=== PATIENT | male | born 1990 | race Two or more races ===

== ENCOUNTER 2020-09-16 21:21 | Inpatient (IN) | payer MEDICAID, OTHER ==
[~2020-09-16] VITALS: Ht 162.6 cm; Wt 125.1 kg
[2020-09-16] MEDS ORDERED: LABETALOL HCL 5 MG/ML 4ML SYRINGE IV ONE ×2 (21:30→23:00)
[2020-09-16 23:04] LABS: Basophils # (auto) 0.2 10 ^3/uL (0-0.2); Basophils % (auto) 1.8 % (0.0-2.0); Eosinophils # (auto) 0.1 10 ^3/uL (0-0.8); Hematocrit 49.7 % (41.0-53.0); Hemoglobin 16.9 g/dL (13.5-17.5); Lymphocytes # (auto) 1.8 10 ^3/uL (0.4-5.4); Lymphocytes % (auto) 18.7 % (10.0-50.0); Mean Corpuscular Hemoglobin 30.1 pg (28.0-32.0); Mean Corpuscular Volume 88.5 fL (80.0-100.0); Monocytes # (auto) 0.6 10 ^3/uL (0-1.3); Monocytes % (auto) 5.8 % (0.0-12.0); Neutrophils # (auto) 7.1 10 ^3/uL (1.6-8.6); Neutrophils % (auto) 72.7 % (37.0-80.0); Platelet Count (auto) 252 10^3/uL (140-450); Red Blood Cells 5.62 10^6/uL (4.5-5.90); Red Cell Distribution Width 13.1 % (11.8-14.3); White Blood Cell 9.8 10^3/uL (4.4-10.8)
[2020-09-16 23:26] LABS: Alanine Aminotransferase 93 U/L (16-61); Albumin 3.8 g/dL (3.4-5.0); Anion Gap 12 (5-15); Aspartate Aminotransferase 37 U/L (15-37); BUN/Creatinine Ratio 14.5; Blood Urea Nitrogen 11 mg/dL (7-18); Carbon Dioxide 25 mmol/L (21-32); Chloride 98 mmol/L (98-107); GFR African American 153 mL/min; GFR Non-African American 126 mL/min; Glucose 329 mg/dL (74-106); Potassium 3.5 mmol/L (3.5-5.1); Sodium 135 mmol/L (136-145)
[2020-09-16 23:32] LABS: INR 0.96 (0.9-1.15); Partial Thromboplastin Time 26.2 sec (23.0-31.2)
[2020-09-16 23:35] LABS: Alkaline Phosphatase 130 U/L (45-117); Bilirubin, Total 0.4 mg/dL (0.2-1.0)
[2020-09-17] VITALS (8 sets, daily range): BP systolic 154–161; BP diastolic 85–111
[2020-09-17] MEDS ORDERED: DEXTROSE (50%) 50ML SYRG IV PRN (01:30)
[2020-09-17] MEDS ORDERED: MORPHINE SULF INJ 2 MG/ML SYRINGE 1ML IV PRN (01:45)
[2020-09-17] MEDS ORDERED: ONDANSETRON HCL 4 MG/2 ML VIAL IV PRN (01:45)
[2020-09-17] MEDS ORDERED: HYDROcodone-ACET 5/325MG TAB PO PRN (01:45)
[2020-09-17] MEDS ORDERED: DOCUSATE SOD 100 MG CAP PO PRN (01:45)
[2020-09-17] MEDS ORDERED: NITROGLYCERIN 0.4 MG SL TAB SL PRN (01:45)
[2020-09-17] MEDS: ACETAMINOPHEN 325 MG TAB PO PRN (03:47)
[2020-09-17] MEDS: hydrALAZINE HCL 20 MG/ML VL IV PRN ×2 (04:05→22:16)
[2020-09-17] MEDS: InsuLIN REG 1unit/0.01ml Soln (100units/ml) SC SCH ×3 (06:31→16:30)
[2020-09-17] MEDS: ACCU-CHEK COMFORT CURVE STRIP VI SCH ×4 (06:33→21:43)
[2020-09-17] MEDS: INSULIN LANTUS (GLARGINE) 1 /0.01ml (100units/ml) SC SCH ×2 (06:33→22:14)
[2020-09-17] MEDS: ZINC SULFATE 220mg CAP or TAB PO SCH (09:29)
[2020-09-17] MEDS: MULTIPLE VITAMIN TAB PO SCH (09:29)
[2020-09-17] MEDS: ENOXAPARIN SOD 120 MG/0.8 ML SYRINGE SC SCH (09:30)
[2020-09-17] MEDS: ASCORBIC ACID 500 MG TAB PO SCH ×2 (09:30→21:42)
[2020-09-17] MEDS: amLODIPine BESYLATE 5 MG TAB PO SCH (09:30)
[2020-09-17] MEDS: FAMOTIDINE 20 MG TAB PO SCH ×2 (09:30→21:42)
[2020-09-17 09:33] LABS: Basophils # (auto) 0.1 10 ^3/uL (0-0.2); Basophils % (auto) 1.1 % (0.0-2.0); Eosinophils # (auto) 0.2 10 ^3/uL (0-0.8); Eosinophils % (auto) 3.1 % (0.0-7.0); Hematocrit 46.2 % (41.0-53.0); Hemoglobin 15.8 g/dL (13.5-17.5); Lymphocytes # (auto) 2.2 10 ^3/uL (0.4-5.4); Lymphocytes % (auto) 28.7 % (10.0-50.0); Mean Corpuscular Hemoglobin 30.4 pg (28.0-32.0); Mean Corpuscular Hgb Conc. 34.1 g/dL (32.0-36.0); Monocytes # (auto) 0.5 10 ^3/uL (0-1.3); Monocytes % (auto) 6.2 % (0.0-12.0); Neutrophils # (auto) 4.8 10 ^3/uL (1.6-8.6); Neutrophils % (auto) 60.9 % (37.0-80.0); Platelet Count (auto) 238 10^3/uL (140-450); White Blood Cell 7.8 10^3/uL (4.4-10.8)
[2020-09-17 09:55] LABS: Albumin 3.2 g/dL (3.4-5.0); Calcium 8.7 mg/dL (8.5-10.1); Potassium 3.9 mmol/L (3.5-5.1)
[2020-09-17 10:00] LABS: BUN/Creatinine Ratio 15.1; Bilirubin, Total 0.5 mg/dL (0.2-1.0)
[2020-09-17] MEDS: Glucerna Carbsteady SHAKE Vanilla 8oz PO SCH (17:43)
[2020-09-17] MEDS ORDERED: InsuLIN REG 1unit/0.01ml Soln (100units/ml) SC SCH (22:00)
[2020-09-18 05:00] VITALS: BP 164/104
[2020-09-18] MEDS: InsuLIN REG 1unit/0.01ml Soln (100units/ml) SC SCH ×2 (06:33→13:40)
[2020-09-18] MEDS: INSULIN LANTUS (GLARGINE) 1 /0.01ml (100units/ml) SC SCH (06:34)
[2020-09-18] MEDS: ACCU-CHEK COMFORT CURVE STRIP VI SCH ×2 (06:34→13:37)
[2020-09-18] MEDS: hydrALAZINE HCL 20 MG/ML VL IV PRN (06:35)
[2020-09-18 07:35] LABS: Basophils # (auto) 0.1 10 ^3/uL (0-0.2); Basophils % (auto) 1.2 % (0.0-2.0); Eosinophils # (auto) 0.4 10 ^3/uL (0-0.8); Eosinophils % (auto) 4.6 % (0.0-7.0); Hemoglobin 17.1 g/dL (13.5-17.5); Lymphocytes # (auto) 2.4 10 ^3/uL (0.4-5.4); Lymphocytes % (auto) 31.6 % (10.0-50.0); Mean Corpuscular Hemoglobin 31.2 pg (28.0-32.0); Mean Corpuscular Hgb Conc. 34.9 g/dL (32.0-36.0); Mean Corpuscular Volume 89.4 fL (80.0-100.0); Monocytes # (auto) 0.4 10 ^3/uL (0-1.3); Monocytes % (auto) 5.8 % (0.0-12.0); Neutrophils # (auto) 4.3 10 ^3/uL (1.6-8.6); Neutrophils % (auto) 56.8 % (37.0-80.0); Nucleated Red Blood Cells % 0.1 %; Platelet Count (auto) 237 10^3/uL (140-450); Red Blood Cells 5.48 10^6/uL (4.5-5.90); Red Cell Distribution Width 13.2 % (11.8-14.3); White Blood Cell 7.6 10^3/uL (4.4-10.8)
[2020-09-18 07:46] LABS: Albumin 3.4 g/dL (3.4-5.0); Calcium 8.8 mg/dL (8.5-10.1); Potassium 3.9 mmol/L (3.5-5.1)
[2020-09-18 07:50] LABS: BUN/Creatinine Ratio 20.8; Bilirubin, Total 0.5 mg/dL (0.2-1.0); Total Protein 7.6 g/dL (6.4-8.2)
[2020-09-18 08:39] VITALS: BP 142/88
[2020-09-18] MEDS: ZINC SULFATE 220mg CAP or TAB PO SCH (09:08)
[2020-09-18] MEDS: Glucerna Carbsteady SHAKE Vanilla 8oz PO SCH ×2 (09:08→13:37)
[2020-09-18] MEDS: MULTIPLE VITAMIN TAB PO SCH (09:08)
[2020-09-18] MEDS: FAMOTIDINE 20 MG TAB PO SCH (09:09)
[2020-09-18] MEDS: amLODIPine BESYLATE 5 MG TAB PO SCH (09:09)
[2020-09-18] MEDS: ASCORBIC ACID 500 MG TAB PO SCH (09:09)
[2020-09-18] MEDS: ENOXAPARIN SOD 120 MG/0.8 ML SYRINGE SC SCH (09:10)
[2020-09-18] MEDS: ACETAMINOPHEN 325 MG TAB PO PRN (09:11)
[2020-09-18] MEDS ORDERED: GLIP5TAB12 PO (09:31)
[2020-09-18] MEDS ORDERED: METF-370 PO (09:31)
[2020-09-18] MEDS ORDERED: ATOR20TA50 PO (09:31)
[2020-09-18] MEDS ORDERED: LOSA-39 PO (09:31)
[2020-09-18] MEDS ORDERED: AMLO-489 PO (09:31)
[2020-09-18] MEDS ORDERED: LISI-646 PO (09:31)
[2020-09-18 12:14] VITALS: BP 139/101
[2020-09-18] MEDS: CLOTRIMAZOLE 1 % CREAM 15GM TOP SCH ×2 (13:41→13:50)
== END 2020-09-18 14:30 | disposition left against medical advice (07) | DRG 199 ==
LOC: ER 21:21 → TELE 09-17 01:49 → TELE-CENTR 09-17 03:30
PROVIDERS: ADMIT Nurse Practitioner Family; ATTEND Internal Medicine
DX: I16.0 Hypertensive urgency (principal); E44.0 Moderate protein-calorie malnutrition; I50.9 Heart failure, unspecified; E11.65 Type 2 diabetes mellitus with hyperglycemia; E66.01 Morbid (severe) obesity due to excess calories; Z68.42 Body mass index [BMI] 45.0-49.9, adult; R65.10 Systemic inflammatory response syndrome (SIRS) of non-infectious origin without acute organ dysfunction; E87.1 Hypo-osmolality and hyponatremia; Z20.822 Contact with and (suspected) exposure to COVID-19; Z91.19 Patient's noncompliance with other medical treatment and regimen; F14.10 Cocaine abuse, uncomplicated; Z91.14 Patient's other noncompliance with medication regimen; I11.0 Hypertensive heart disease with heart failure; Z53.29 Procedure and treatment not carried out because of patient's decision for other reasons; F15.10 Other stimulant abuse, uncomplicated; F17.210 Nicotine dependence, cigarettes, uncomplicated; N47.6 Balanoposthitis
CPT/HCPCS: 36415; 70450; 71045; 80053; 80320; 82962; 83036; 83880; 84443; 84484; 85025; 85379; 85610; 85730; 87077; 87081; 87205; 87426; 93005; 96374; 96375; G0378; J1815; J3490

== ENCOUNTER 2020-11-28 15:43 | Emergency (ER) | payer SELFPAY ==
[~2020-11-28] VITALS: Ht 162.6 cm; Wt 127.0 kg
[~2020-11-28 15:43] MED LIST: AMLO-489 PO; ATOR20TA50 PO; GLIP5TAB12 PO; LISI20TA28 PO; LOSA-39 PO; METF-370 PO
[2020-11-28 16:17] VITALS: BP 157/109
== END 2020-11-28 16:45 | disposition home or self-care (01) ==
LOC: ER 15:43
DX: B37.42 Candidal balanitis (principal); N39.0 Urinary tract infection, site not specified; I10 Essential (primary) hypertension; E11.9 Type 2 diabetes mellitus without complications

== ENCOUNTER → 2021-01-16 | Emergency (ER) | payer MEDICAID, OTHER ==
[~2021-01-16] VITALS: Ht 165.1 cm; Wt 117.9 kg
[~2021-01-16] MED LIST changes: +LIDOCAINE VISCOUS 2% 15ML UD ONE; +MIDAZOLAM HCL 5 MG/ML-1ML VIAL ONE; +SODIUM CHLORIDE LOCK 10 ML ONE; +diphenhdrAMINE HCL 50 MG/1 ML VL ONE; +fentaNYL CITRATE 100 MCG/2 ML VL ONE
[2021-01-16 12:21] VITALS: BP 137/100
== END | disposition left against medical advice (07) ==
LOC: ER 12:19
DX: R06.02 Shortness of breath (principal); R07.89 Other chest pain; Z53.21 Procedure and treatment not carried out due to patient leaving prior to being seen by health care provider; Z20.822 Contact with and (suspected) exposure to COVID-19
CPT/HCPCS: 36415; 71046; 87426; 93005; J2250

== ENCOUNTER 2021-01-29 00:40 | Emergency (ER) | payer MEDICAID ==
[~2021-01-29] VITALS: Ht 165.1 cm; Wt 113.4 kg
[~2021-01-29 00:40] MED LIST changes: -LIDOCAINE VISCOUS 2% 15ML UD ONE; -MIDAZOLAM HCL 5 MG/ML-1ML VIAL ONE; -SODIUM CHLORIDE LOCK 10 ML ONE; -diphenhdrAMINE HCL 50 MG/1 ML VL ONE; -fentaNYL CITRATE 100 MCG/2 ML VL ONE
[2021-01-29 01:58] LABS: Basophils # (auto) 0.1 10 ^3/uL (0-0.2); Basophils % (auto) 0.9 % (0.0-2.0); Eosinophils # (auto) 0.1 10 ^3/uL (0-0.8); Eosinophils % (auto) 1.6 % (0.0-7.0); Hematocrit 46.8 % (41.0-53.0); Hemoglobin 16.1 g/dL (13.5-17.5); Lymphocytes % (auto) 28.7 % (10.0-50.0); Mean Corpuscular Hemoglobin 31.3 pg (28.0-32.0); Mean Corpuscular Hgb Conc. 34.4 g/dL (32.0-36.0); Mean Corpuscular Volume 91.1 fL (80.0-100.0); Monocytes # (auto) 0.5 10 ^3/uL (0-1.3); Monocytes % (auto) 7.7 % (0.0-12.0); Neutrophils # (auto) 4.3 10 ^3/uL (1.6-8.6); Neutrophils % (auto) 61.1 % (37.0-80.0); Red Blood Cells 5.13 10^6/uL (4.5-5.90); Red Cell Distribution Width 13.3 % (11.8-14.3)
[2021-01-29 02:17] LABS: INR 0.96 (0.9-1.15)
[2021-01-29 02:29] LABS: Alanine Aminotransferase 114 U/L (16-61); Albumin 3.6 g/dL (3.4-5.0); Anion Gap 14 (5-15); Aspartate Aminotransferase 43 U/L (15-37); BUN/Creatinine Ratio 11.8; Blood Urea Nitrogen 13 mg/dL (7-18); Carbon Dioxide 20 mmol/L (21-32); Chloride 104 mmol/L (98-107); GFR African American 100 mL/min; GFR Non-African American 82 mL/min; Lipase 161 U/L (73-393); Potassium 4.2 mmol/L (3.5-5.1); Sodium 138 mmol/L (136-145)
[2021-01-29 02:32] LABS: Glucose 417 mg/dL (74-106)
[2021-01-29 02:34] LABS: Lactic Acid w/Reflex 2.9 mmol/L (0.4-2.0)
[2021-01-29 02:35] LABS: Alkaline Phosphatase 162 U/L (45-117); Bilirubin, Total 0.2 mg/dL (0.2-1.0)
[2021-01-29] MEDS ORDERED: InsuLIN REG 1unit/0.01ml Soln (100units/ml) IV ONE (03:15)
[2021-01-29] MEDS ORDERED: SODIUM CHLORIDE 0.9% 1,000 ML IV ONE (03:45)
[2021-01-29 04:05] LABS: Urine Bacteria FEW /hpf (None Seen); Urine Blood Negative /uL (Negative); Urine Mucus FEW (None Seen); Urine Specific Gravity 1.031 (1.001-1.035); Urine WBC 1 /hpf (0 - 3)
[2021-01-29] MEDS ORDERED: cloNIDine HCL 0.1 MG TAB PO ONE (04:15)
[2021-01-29 07:36] VITALS: BP 159/100
== END 2021-01-29 07:38 | disposition home or self-care (01) ==
LOC: ER 00:40 → EDBD 00:40 → ER 07:38
DX: I10 Essential (primary) hypertension (principal); E11.65 Type 2 diabetes mellitus with hyperglycemia; Z79.899 Other long term (current) drug therapy
CPT/HCPCS: 36415; 71045; 80053; 80320; 81001; 82962; 83605; 83690; 83880; 84484; 85025; 85610; 93005; 96361; 96374; 99285; J1815; J7030